=== PATIENT | male | born 2000 | race Caucasian/White ===

== ENCOUNTER 2022-04-15 12:35 | Emergency (ER) | payer OTHER ==
[~2022-04-15] VITALS: Ht 190.5 cm; Wt 90.7 kg
[2022-04-15] MEDS ORDERED: TETANUS,DIPTH,PERTUSS P/F (BOOSTRIX) 0.5 ML VIAL IM ONE (14:30)
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
[2022-04-15 15:31] VITALS: BP 129/77
== END 2022-04-15 15:31 | disposition home or self-care (01) ==
LOC: ER 12:38
DX: S01.81XA Laceration without foreign body of other part of head, initial encounter (principal); Z23 Encounter for immunization; Z28.310 Unvaccinated for COVID-19; Y04.2XXA Assault by strike against or bumped into by another person, initial encounter; Y92.89 Other specified places as the place of occurrence of the external cause
CPT/HCPCS: 90715